=== PATIENT | female | born 1955 | race African-American/Black ===

== ENCOUNTER 2017-08-14 10:27 | Emergency (ER) | payer OTHER ==
[2017-08-14] MEDS ORDERED: Cyclobenzaprine 10 MG TAB ONE (11:18)
[2017-08-14] MEDS ORDERED: Naproxen 500 MG TAB ONE (11:18)
--- NOTE | 2017-08-14 11:39 | RAD ---
CERVICAL SPINE 3 VIEWS: HISTORY: Neck pain. FINDINGS: There are degenerative changes most prominent at the C5-6 level. No fracture, subluxation, or bony d estruction is seen. IMPRESSION: Cervical spondylosis. POS: [facility]
== END 2017-08-14 11:45 | disposition home or self-care (01) ==
LOC: MADERS 10:27
DX: S16.1XXA Strain of muscle, fascia and tendon at neck level, initial encounter (principal); R01.1 Cardiac murmur, unspecified; I10 Essential (primary) hypertension; F17.210 Nicotine dependence, cigarettes, uncomplicated
CPT/HCPCS: 72040

== ENCOUNTER 2020-07-18 11:02 | Emergency (ER) | payer MEDICARE ==
[2020-07-18] MEDS ORDERED: Prochlorperazine 10 MG/2 ML VIAL ONE (11:37)
[2020-07-18] MEDS ORDERED: Meclizine HCl 25 MG TAB ONE (11:37)
== END 2020-07-18 12:43 | disposition home or self-care (01) ==
LOC: MADERS 11:02
DX: A08.4 Viral intestinal infection, unspecified (principal); I10 Essential (primary) hypertension; F17.210 Nicotine dependence, cigarettes, uncomplicated; Z79.899 Other long term (current) drug therapy
CPT/HCPCS: 96372; 99283; J0780

== ENCOUNTER 2020-07-23 15:48 | Emergency (ER) | payer MEDICARE ==
--- NOTE | 2020-07-23 16:52 | RAD ---
Portable frontal chest radiograph: 07/23/2020 COMPARISON: 10/15/2011 HISTORY: Dizziness, weakness FINDINGS: There are linear interstitial densities with superimposed groundglass opacity within the la teral mid right lung zone as well as within bilateral lung bases, which appears new when compared to the prior exam. There is no pneumothorax. Heart and mediastinal contours are unremarkable. There i s atherosclerotic calcification of the aortic arch. IMPRESSION: Findings suspicious for but not specific for bilateral Covid pneumonia. Clinical correlat ion required.
[2020-07-23 17:05] LABS: Hemoglobin 14.9 g/dL (12.0-16.0); Mean Corpuscular HGB CONC 32.8 g/dL (32.0-36.0); Mean Corpuscular Hemoglobin 30.6 pg (27.0-31.0); Mean Corpuscular Volume 93.2 fL (78.0-98.0); Platelet Count 186 thou/uL (130-400); RBC Distribution Width 11.4 % (11.5-14.5); Red Blood Cell (RBC) Count 4.86 mill/uL (4.20-5.40); White Blood Cell (WBC) Count 5.5 thou/uL (4.8-10.8)
[2020-07-23 17:09] LABS: AST (SGOT) 28 U/L (5-34); Alkaline Phosphatase 73 U/L (40-110); Anion Gap 19 mmol/L (10-20); BUN (Urea Nitrogen) 49 mg/dL (9.8-20.1); Bilirubin, Total 0.3 mg/dL (0.2-1.2); CK (CPK) 95 U/L (29-168); Calc. Creatinine Clearance 0 mL/min (70-130); Calcium 11.2 mg/dL (7.8-10.44); Carbon Dioxide 19 mmol/L (23-31); Chloride 102 mmol/L (98-107); Globulin 3.2 g/dL (2.4-3.5); Glucose 97 mg/dL (80-115); Potassium 4.3 mmol/L (3.5-5.1); Protein, Total 7.2 g/dL (6.0-8.3); Sodium 136 mmol/L (136-145)
[2020-07-23 17:10] LABS: ALT (SGPT) 14 U/L (8-55); Magnesium 1.9 mg/dL (1.6-2.6)
[2020-07-23] MEDS ORDERED: Sodium Chloride 0.9% 1,000 ML ONE (17:18)
[2020-07-23] MEDS ORDERED: Aspirin Chewable 81 MG TAB ONE (17:18)
[2020-07-23 17:25] LABS: Lymphocytes 10 % (21-51)
[2020-07-23 17:26] LABS: Monocytes 4 % (0-10); Neutrophil 86 % (42-75); Platelet Morphology Comment Appears Adequate
--- NOTE | 2020-07-23 17:54 | CT ---
CT OF BRAIN PERFORMED WITHOUT CONTRAST ENHANCEMENT: 07/23/20 HISTORY: Syncope. There is generalized ventricular and sulcal prominence. There are no signs of intracerebral hemorrhag e or extra-axial fluid collections. The mastoid air cells and visualized sinuses are clear. IMPRESSION: No acute intracranial abnormalities. POS: OFF
[2020-07-23] MEDS ORDERED: Dexamethasone 10 MG/ML VIAL ONE (18:26)
== END 2020-07-23 19:03 | disposition short-term general hospital (02) ==
LOC: MADERS 15:48
DX: I21.4 Non-ST elevation (NSTEMI) myocardial infarction (principal); Z20.822 Contact with and (suspected) exposure to COVID-19; F17.210 Nicotine dependence, cigarettes, uncomplicated; I10 Essential (primary) hypertension; Z79.899 Other long term (current) drug therapy
CPT/HCPCS: 70450; 71045; 80053; 82550; 82553; 83735; 83880; 84484; 85025; 93005; 96374; J1100; J7050

== ENCOUNTER 2020-12-06 07:14 | Emergency (ER) | payer MEDICARE ==
[2020-12-06 08:13] LABS: #Basophils 0.1 thou/uL (0.0-0.2); #Eosinphils 0.2 thou/uL (0.0-0.7); #Lymphocytes 1.1 thou/uL (1.20-3.40); #Monocytes 0.7 thou/uL (0.11-0.59); #Neutrophils 4.1 thou/uL (1.40-6.50); %Basophils 1.2 % (0.0-1.0); %Lymphocytes 18.2 % (21.0-51.0); %Monocytes 10.5 % (0.0-10.0); %Neutrophils 66.2 % (42.0-75.0); Hemoglobin 6.5 g/dL (12.0-16.0); Mean Corpuscular HGB CONC 29.9 g/dL (32.0-36.0); Mean Corpuscular Hemoglobin 25.4 pg (27.0-31.0); Mean Corpuscular Volume 84.8 fL (78.0-98.0); Mean Platelet Volume 7.4 fL (7.4-10.4); Platelet Count 259 thou/uL (130-400); RBC Distribution Width 18.7 % (11.5-14.5); Red Blood Cell (RBC) Count 2.58 mill/uL (4.20-5.40); White Blood Cell (WBC) Count 6.2 thou/uL (4.8-10.8)
[2020-12-06 08:15] LABS: ALT (SGPT) 11 U/L (8-55); AST (SGOT) 16 U/L (5-34); Albumin 3.7 g/dL (3.4-4.8); Alkaline Phosphatase 84 U/L (40-110); Anion Gap 13 mmol/L (10-20); BUN (Urea Nitrogen) 11 mg/dL (9.8-20.1); Bilirubin, Total 0.2 mg/dL (0.2-1.2); CK (CPK) 63 U/L (29-168); Calc. Creatinine Clearance 0 mL/min (70-130); Calcium 11.1 mg/dL (7.8-10.44); Carbon Dioxide 19 mmol/L (23-31); Chloride 112 mmol/L (98-107); Globulin 2.8 g/dL (2.4-3.5); Glucose 103 mg/dL (80-115); Potassium 4.3 mmol/L (3.5-5.1); Protein, Total 6.5 g/dL (5.8-8.1); Sodium 140 mmol/L (136-145)
[2020-12-06 08:21] LABS: Anisocytosis SLIGHT = 6-15 cells (100X) (0-5/hpf); Hypochromia MODERATE=16-30 cells (100X) (0-5/hpf); Platelet Morphology Comment Appears Adequate; Poikilocytosis SLIGHT = 6-15 cells (100X) (0-5/hpf)
[2020-12-06 08:33] LABS: CKMB 0.8 ng/mL (0-6.6)
[2020-12-06 09:40] LABS: Bilirubin Negative (Negative); Blood, Urine Trace (Negative); Clarity Clear (Clear); Glucose, Urine (Dipstick) Negative (Negative); Ketone, Urine Negative (Negative); Leukocyte Negative (Negative); Nitrite Negative (Negative); Protein, Urine (Dipstick) Negative (Neg-Trace); Urobilinogen 0.2 mg/dL (Less than 2)
[2020-12-06] MEDS ORDERED: Pantoprazole 40 MG VIAL ONE (09:57)
[2020-12-06 10:09] LABS: RBC/HPF 0-3 HPF (0-3)
[2020-12-06 10:12] LABS: Bacteria/HPF Rare-Few HPF (None Seen); Squamous Epithelial 0-3 HPF (0-3); WBC/HPF None Seen HPF (0-3)
== END 2020-12-06 16:37 | disposition short-term general hospital (02) ==
LOC: MADERS 07:14
DX: K92.2 Gastrointestinal hemorrhage, unspecified (principal); D50.0 Iron deficiency anemia secondary to blood loss (chronic); R79.89 Other specified abnormal findings of blood chemistry; I10 Essential (primary) hypertension; F17.210 Nicotine dependence, cigarettes, uncomplicated; Z79.899 Other long term (current) drug therapy
CPT/HCPCS: 36430; 71045; 82274; 82550; 82553; 84484; 86850; 86900; 86901; 86920; 93005; P9016; 80053; 81003; 81015; 84443; 85025; 96374; C9113

== ENCOUNTER 2022-09-09 16:45 | Emergency (ER) | payer OTHER ==
[2022-09-09 18:23] LABS: Bilirubin Small (Negative); Blood, Urine Negative (Negative); Glucose, Urine (Dipstick) Negative (Negative); Ketone, Urine Negative (Negative); Leukocyte Trace (Negative); Nitrite Negative (Negative); Protein, Urine (Dipstick) 30 mg/dL (Neg-Trace); Specific Gravity, Urine 1.015 (1.005-1.030); pH, Urine 6.5 (5.0-9.0)
[2022-09-09] MEDS ORDERED: Sodium Chloride 0.9% 1,000 ML ONE (18:24)
[2022-09-09 18:27] LABS: Clarity Hazy (Clear)
[2022-09-09 18:33] LABS: Bacteria/HPF Rare-Few HPF (None Seen); RBC/HPF None Seen HPF (0-3); WBC/HPF 0-3 HPF (0-3)
[2022-09-09 19:17] LABS: #Basophils 0.1 thou/uL (0.0-0.2); #Lymphocytes 2.1 thou/uL (1.20-3.40); #Monocytes 1.4 thou/uL (0.11-0.59); #Neutrophils 11.5 thou/uL (1.40-6.50); %Basophils 0.4 % (0.0-1.0); %Eosinophils 0.1 % (0.0-10.0); %Lymphocytes 13.9 % (21.0-51.0); %Monocytes 9.3 % (0.0-10.0); %Neutrophils 76.3 % (42.0-75.0); Hemoglobin 9.4 g/dL (12.0-16.0); Mean Corpuscular HGB CONC 33.3 g/dL (32.0-36.0); Mean Corpuscular Hemoglobin 28.9 pg (27.0-31.0); Mean Corpuscular Volume 86.9 fl (78.0-98.0); Mean Platelet Volume 6.9 fL (7.4-10.4); Platelet Count 456 10x3/uL (130-400); RBC Distribution Width 12.5 % (11.5-14.5); Red Blood Cell (RBC) Count 3.25 mill/uL (4.20-5.40); White Blood Cell (WBC) Count 15.1 10x3/uL (4.8-10.8)
[2022-09-09 19:21] LABS: INR-International Normal Ratio 1.2; PTT 33.9 sec (22.9-36.1); Prothrombin Time 15.7 sec (12.0-14.7)
[2022-09-09 19:31] LABS: ALT (SGPT) Less than 7 U/L (8-55); AST (SGOT) 51 U/L (5-34); Albumin 3.4 g/dL (3.4-4.8); Alkaline Phosphatase 111 U/L (40-110); Anion Gap 14 mmol/L (10-20); BUN (Urea Nitrogen) 15 mg/dL (9.8-20.1); Bilirubin, Total 0.9 mg/dL (0.2-1.2); Calc. Creatinine Clearance 0 mL/min (70-130); Carbon Dioxide 28 mmol/L (23-31); Chloride 98 mmol/L (98-107); Estimated GFR 51; Globulin 3.7 g/dL (2.4-3.5); Glucose 105 mg/dL (80-115); Magnesium 1.2 mg/dL (1.6-2.6); Potassium 3.6 mmol/L (3.5-5.1); Protein, Total 7.1 g/dL (5.8-8.1); Sodium 136 mmol/L (136-145)
[2022-09-09 19:34] LABS: Calcium 13.4 mg/dL (7.8-10.44)
[2022-09-09 19:44] LABS: SARS-CoV-2 NAA Rapid Test Not Detected (NotDetected)
[2022-09-09 19:49] LABS: CKMB 0.4 ng/mL (0-6.6)
[2022-09-09] MEDS ORDERED: Aspirin Chewable 81 MG TAB ONE (21:19)
[2022-09-09] MEDS ORDERED: Magnesium 2 GM/50 ML BAG (IN WATER) ONE (21:19)
[2022-09-09] MEDS ORDERED: cefTRIAXone\\ROCEPHIN 1 GM VIAL ONE (21:37)
[2022-09-10 00:13] LABS: CKMB 0.5 ng/mL (0-6.6)
== END 2022-09-10 01:16 | disposition short-term general hospital (02) ==
LOC: MADERS 16:45
DX: R42 Dizziness and giddiness (principal); E83.52 Hypercalcemia; R77.8 Other specified abnormalities of plasma proteins; A41.9 Sepsis, unspecified organism; N39.0 Urinary tract infection, site not specified; I95.1 Orthostatic hypotension; E83.42 Hypomagnesemia; D72.829 Elevated white blood cell count, unspecified; K21.9 Gastro-esophageal reflux disease without esophagitis; F17.210 Nicotine dependence, cigarettes, uncomplicated; Z79.899 Other long term (current) drug therapy
CPT/HCPCS: 36415; 70450; 71045; 80053; 81003; 81015; 82553; 83605; 83735; 84484; 85025; 85610; 85730; 87040; 93005; 96361; 96365; 96375; J0696; J3475; J7050; U0002

== ENCOUNTER 2022-11-01 16:00 | Emergency (ER) | payer OTHER ==
[2022-11-01] MEDS ORDERED: Sodium Chloride 0.9% 1,000 ML ONE (17:09)
[2022-11-01] MEDS ORDERED: Pantoprazole 40 MG VIAL ONE (17:09)
[2022-11-01 17:23] LABS: #Basophils 0.1 thou/uL (0.0-0.2); #Lymphocytes 1.2 thou/uL (1.20-3.40); #Monocytes 0.6 thou/uL (0.11-0.59); #Neutrophils 16.9 thou/uL (1.40-6.50); %Basophils 0.3 % (0.0-1.0); %Lymphocytes 6.1 % (21.0-51.0); %Monocytes 3.2 % (0.0-10.0); %Neutrophils 90.3 % (42.0-75.0); Hemoglobin 5.6 g/dL (12.0-16.0); Mean Corpuscular HGB CONC 31.4 g/dL (32.0-36.0); Mean Corpuscular Hemoglobin 30.7 pg (27.0-31.0); Mean Corpuscular Volume 97.6 fl (78.0-98.0); Mean Platelet Volume 7.8 fL (7.4-10.4); Platelet Count 532 10x3/uL (130-400); RBC Distribution Width 20.8 % (11.5-14.5); Red Blood Cell (RBC) Count 1.83 mill/uL (4.20-5.40); White Blood Cell (WBC) Count 18.7 10x3/uL (4.8-10.8)
[2022-11-01 17:32] LABS: ALT (SGPT) 8 U/L (8-55); AST (SGOT) 42 U/L (5-34); Alkaline Phosphatase 110 U/L (40-110); Anion Gap 19 mmol/L (10-20); BUN (Urea Nitrogen) 39 mg/dL (9.8-20.1); Bilirubin, Total 0.3 mg/dL (0.2-1.2); Calc. Creatinine Clearance 0 mL/min (70-130); Calcium 10.4 mg/dL (7.8-10.44); Carbon Dioxide 25 mmol/L (23-31); Chloride 96 mmol/L (98-107); Estimated GFR 23; Globulin 4.2 g/dL (2.4-3.5); Glucose 163 mg/dL (80-115); Magnesium 1.7 mg/dL (1.6-2.6); Potassium 3.9 mmol/L (3.5-5.1); Protein, Total 7.2 g/dL (5.8-8.1); Sodium 136 mmol/L (136-145)
[2022-11-01 17:39] LABS: Poikilocytosis SLIGHT = 6-15 cells (100X) (0-5/hpf)
[2022-11-01 17:40] LABS: Hypochromia MODERATE=16-30 cells (100X) (0-5/hpf); Platelet Morphology Comment Appears Increased; Polychromasia MODERATE = 3-4 cells (100X) (0-2/hpf)
[2022-11-01 17:41] LABS: Anisocytosis MODERATE=16-30 cells (100X) (0-5/hpf)
[2022-11-01] MEDS ORDERED: Sodium Chloride 0.9% 500 ML ONE (17:58)
[2022-11-01 20:30] LABS: Bilirubin Negative (Negative); Blood, Urine Moderate (Negative); Clarity Clear (Clear); Glucose, Urine (Dipstick) Negative (Negative); Ketone, Urine Negative (Negative); Leukocyte Trace (Negative); Nitrite Negative (Negative); Protein, Urine (Dipstick) 30 mg/dL (Neg-Trace); Specific Gravity, Urine 1.015 (1.005-1.030); Urobilinogen 0.2 mg/dL (Less than 2)
[2022-11-01 20:37] LABS: Bacteria/HPF 1+ HPF (None Seen); Squamous Epithelial 0-3 HPF (0-3); Transitional Epithelial 0-3 HPF (None Seen)
== END 2022-11-01 22:50 | disposition short-term general hospital (02) ==
LOC: MADERS 16:00
DX: D64.9 Anemia, unspecified (principal); N17.9 Acute kidney failure, unspecified; E86.9 Volume depletion, unspecified; R00.0 Tachycardia, unspecified; E03.9 Hypothyroidism, unspecified; K21.9 Gastro-esophageal reflux disease without esophagitis; I10 Essential (primary) hypertension; Z87.891 Personal history of nicotine dependence; Z79.01 Long term (current) use of anticoagulants; Z79.899 Other long term (current) drug therapy
CPT/HCPCS: 36430; 83735; 86850; 86900; 86901; 86920; 96361; 96374; 99284; P9016; 36415; 80053; 81003; 81015; 82274; 84443; 85025; C9113; J7030; J7050

== ENCOUNTER 2022-11-28 12:29 | Emergency (ER) | payer OTHER ==
[~2022-11-28 12:29] MED LIST: Sodium Chloride 0.9% 1,000 ML BAG ONE; Sodium Chloride 0.9% 500 ML BAG ONE
[2022-11-28 13:18] LABS: #Basophils 0.1 thou/uL (0.0-0.2); #Lymphocytes 1.1 thou/uL (1.20-3.40); #Neutrophils 8.3 thou/uL (1.40-6.50); %Basophils 0.6 % (0.0-1.0); %Eosinophils 0.1 % (0.0-10.0); %Lymphocytes 10.8 % (21.0-51.0); %Monocytes 9.9 % (0.0-10.0); %Neutrophils 78.6 % (42.0-75.0); Hemoglobin 8.5 g/dL (12.0-16.0); Mean Corpuscular HGB CONC 33.9 g/dL (32.0-36.0); Mean Corpuscular Hemoglobin 31.8 pg (27.0-31.0); Mean Corpuscular Volume 94.1 fl (78.0-98.0); Mean Platelet Volume 8.2 fL (7.4-10.4); Platelet Count 174 10x3/uL (130-400); RBC Distribution Width 17.4 % (11.5-14.5); Red Blood Cell (RBC) Count 2.65 mill/uL (4.20-5.40); White Blood Cell (WBC) Count 10.5 10x3/uL (4.8-10.8)
[2022-11-28 13:34] LABS: ALT (SGPT) 11 U/L (8-55); AST (SGOT) 31 U/L (5-34); Albumin 3.2 g/dL (3.4-4.8); Alkaline Phosphatase 194 U/L (40-110); Anion Gap 14 mmol/L (10-20); BUN (Urea Nitrogen) 19 mg/dL (9.8-20.1); Bilirubin, Total 0.3 mg/dL (0.2-1.2); Calc. Creatinine Clearance 0 mL/min (70-130); Carbon Dioxide 22 mmol/L (23-31); Chloride 103 mmol/L (98-107); Estimated GFR 79; Globulin 2.9 g/dL (2.4-3.5); Glucose 105 mg/dL (80-115); Magnesium 1.2 mg/dL (1.6-2.6); Potassium 3.3 mmol/L (3.5-5.1); Protein, Total 6.1 g/dL (5.8-8.1); Sodium 136 mmol/L (136-145)
== END 2022-11-28 16:20 | disposition home or self-care (01) ==
LOC: MADERS 12:29
DX: E86.0 Dehydration (principal); D64.9 Anemia, unspecified; E83.42 Hypomagnesemia; I10 Essential (primary) hypertension; Z87.891 Personal history of nicotine dependence
CPT/HCPCS: 36415; 80053; 83735; 85025; 94760; 96360; J7030; J7050

== ENCOUNTER 2022-12-10 12:32 | Emergency (ER) | payer MEDICARE, OTHER ==
[2022-12-10] MEDS ORDERED: Lactated Ringer's 1,000 ML ONE (12:59)
[2022-12-10 14:01] LABS: Anisocytosis SLIGHT = 6-15 cells (100X) (0-5/hpf); Band 7 % (5-11); Hemoglobin 9.2 g/dL (12.0-16.0); Hypochromia SLIGHT = 6-15 cells (100X) (0-5/hpf); Lymphocytes 9 % (21-51); MDiff Complete? YES; Mean Corpuscular HGB CONC 34.4 g/dL (32.0-36.0); Mean Corpuscular Hemoglobin 32.3 pg (27.0-31.0); Mean Corpuscular Volume 93.9 fl (78.0-98.0); Mean Platelet Volume 7.8 fL (7.4-10.4); Metamyelocyte 1 % (0-0); Monocytes 8 % (0-10); Myelocyte 1 % (0-0); Neutrophil 73 % (42-75); Platelet Count 509 10x3/uL (130-400); Platelet Morphology Comment Appears Increased; RBC Distribution Width 16.6 % (11.5-14.5); Reactive Lymphocytes 1 % (0-10); Red Blood Cell (RBC) Count 2.83 mill/uL (4.20-5.40); White Blood Cell (WBC) Count 9.4 10x3/uL (4.8-10.8)
[2022-12-10 14:04] LABS: ALT (SGPT) 27 U/L (8-55); AST (SGOT) 53 U/L (5-34); Alkaline Phosphatase 225 U/L (40-110); Anion Gap 14 mmol/L (10-20); BUN (Urea Nitrogen) 16 mg/dL (9.8-20.1); Bilirubin, Total 0.4 mg/dL (0.2-1.2); CK (CPK) 16 U/L (29-168); Calc. Creatinine Clearance 0 mL/min (70-130); Calcium 8.4 mg/dL (7.8-10.44); Carbon Dioxide 20 mmol/L (23-31); Chloride 101 mmol/L (98-107); Estimated GFR 95; Globulin 2.4 g/dL (2.4-3.5); Glucose 89 mg/dL (80-115); Lipase 24 U/L (8-78); Potassium 3.7 mmol/L (3.5-5.1); Protein, Total 5.4 g/dL (5.8-8.1); Sodium 131 mmol/L (136-145)
[2022-12-10 14:06] LABS: Magnesium 0.9 mg/dL (1.6-2.6)
[2022-12-10] MEDS ORDERED: Magnesium 2 GM/50 ML BAG (IN WATER) ONE (14:13)
[2022-12-10 14:21] LABS: CKMB 1.3 ng/mL (0-6.6)
[2022-12-10 14:48] LABS: Phosphorus 2.3 mg/dL (2.3-4.7)
[2022-12-10 15:17] LABS: Bilirubin Negative (Negative); Blood, Urine Trace (Negative); CAUTI Indications for Culture Alt mental st,lethar; Clarity Clear (Clear); Glucose, Urine (Dipstick) Negative (Negative); Ketone, Urine Negative (Negative); Leukocyte Negative (Negative); Nitrite Negative (Negative); Protein, Urine (Dipstick) Negative (Neg-Trace); RBC/HPF 0-3 HPF (0-3); Urobilinogen 0.2 mg/dL (Less than 2); pH, Urine 6.5 (5.0-9.0)
[2022-12-10 15:18] LABS: Bacteria/HPF Rare-Few HPF (None Seen); Squamous Epithelial 0-3 HPF (0-3); Urine Culture Reflex No No; WBC/HPF None Seen HPF (0-3)
[2022-12-10] MEDS ORDERED: Ondansetron PF 4 MG/2 ML Vial ONE (15:26)
== END 2022-12-10 17:07 | disposition short-term general hospital (02) ==
LOC: MADERS 12:32
DX: E83.42 Hypomagnesemia (principal); R19.7 Diarrhea, unspecified; R77.8 Other specified abnormalities of plasma proteins; R94.31 Abnormal electrocardiogram [ECG] [EKG]; K21.9 Gastro-esophageal reflux disease without esophagitis; I10 Essential (primary) hypertension; Z87.891 Personal history of nicotine dependence; Z79.899 Other long term (current) drug therapy
CPT/HCPCS: 36415; 51701; 71045; 80053; 81001; 82550; 82553; 83605; 83690; 83735; 84100; 84443; 84484; 85025; 86850; 86900; 86901; 93005; 94760; 96361; 96365; 96366; 96375; J2405; J3475; J7120